=== PATIENT | female | born 1970 | race Caucasian/White ===

== ENCOUNTER 2017-06-02 16:49 | Observation (INO) | payer OTHER ==
[2017-06-02 17:14] LABS: % IMMATURE GRANULYOCYTES 0.2 % (0.0-1.1); ABSOLUTE IMMATURE GRANULOCYTES 0.01 10^3/uL (0.00-0.10); ADD DIFF? NO; ADD MORPH? NO; ADD SCAN? NO; ATYPICAL LYMPHOCYTE FLAG 20 (0-99); FRAGMENT RBC FLAG 0 (0-99); HEMATOCRIT 39.4 % (38.0-47.0); HEMOGLOBIN 13.4 g/dL (12.6-16.3); LEFT SHIFT FLG 0 (0-99); LIPEMIA HEMOLYSIS FLAG 90 (0-99); MEAN CELL HEMOGLOBIN 29.5 pg (27.9-34.1); MEAN CELL VOLUME 86.6 fL (81.5-99.8); MEAN PLATELET VOLUME 11.1 fL (8.7-11.7); PLATELET CLUMPS FLAG 0 (0-99); PLATELET COUNT 167 10^3/uL (150-400); RED BLOOD CELL COUNT 4.55 10^6/uL (4.18-5.33); RED CELL DISTRIBUTION WIDTH 12.7 % (11.5-15.2)
[2017-06-02 17:22] LABS: COLOR YELLOW; LEUKOCYTE ESTERASE,URINE NEGATIVE (NEGATIVE); NITRITE,URINE NEGATIVE (NEGATIVE); PH,URINE 6.5 (5.0-7.5)
[2017-06-02 17:32] LABS: ANION GAP 11 mEq/L (8-16); CALCIUM 9.1 mg/dL (8.5-10.4); CARBON DIOXIDE 27 mEq/l (22-31); CHLORIDE 103 mEq/L (97-110); CREATININE 0.7 mg/dL (0.6-1.0); GLOMERULAR FILTRATION RATE > 60; GLUCOSE 83 mg/dL (70-100); SODIUM 141 mEq/L (134-144)
[2017-06-02 17:33] LABS: ALANINE AMINOTRANSFERASE 26 IU/L (9-52); ALBUMIN 4.3 g/dL (3.5-5.0); ALKALINE PHOSPHATASE 38 IU/L (38-126); ASPARTATE AMINOTRANSFERASE 20 IU/L (14-46); BILIRUBIN,TOTAL 0.5 mg/dL (0.1-1.4); TOTAL PROTEIN 7.4 g/dL (6.3-8.2)
[2017-06-02] MEDS ORDERED: KETOROLAC 30 MG/1 ML SDV IVP ONE (17:35)
[2017-06-02] MEDS ORDERED: ERTAPENEM 1 GM in NS 100 ML IV ONE (20:57)
--- NOTE | 2017-06-02 21:01 | EDPHY ---
H & P Time Seen by Provider: 06/02/17 17:12 HPI/ROS: CHIEF COMPLAINT: Right lower quadrant pain HISTORY OF PRESENT ILLNESS: 46-year-old female presenting to the emergency department primary complaint of nausea for the last day and a half and developed some right lower quadrant achy discomfort this morning. Patient can identify no clear relieving factors, her pain is worse when the moving her leg a certain way and when walking. She denies any vomiting. She denies a fever, cough, or cold symptoms. No urinary complaints. No diarrhea. 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 No fever, chills, chest pain, shortness of breath, palpitations, vomiting, diarrhea, urinary complaints, headache, lightheadedness. REVIEW OF SYSTEMS: Aside from elements discussed in the HPI, a comprehensive 10-point review of systems was reviewed and is negative. PAST MEDICAL HISTORY: Patient denies. SOCIAL HISTORY: Here with her family. She is a teacher. VITAL SIGNS Reviewed by me. GENERAL: Well-developed, well-nourished, resting comfortably in no respiratory distress. HEENT: Atraumatic. Eyes: No icterus, no injection. Mouth: moist mucous membranes. No erythema or lesions. Neck: supple with no adenopathy. LUNGS: Clear to auscultation bilaterally, no wheezes, rhonchi or rales. CARDIAC: Regular rate and rhythm, no rubs, murmurs or gallops. ABDOMEN: Soft, mild tenderness in the low right lower quadrant. Patient can identify an area 1-2 cm above the inguinal fold where the tenderness is maximum. She also has some achy discomfort at McBurney's point. No guarding or rebound. Palpation of the left side of the abdomen does cause pain in the right lower quadrant. BACK: No CVA tenderness. EXTREMITIES: No trauma. No edema. Range of motion is normal throughout. NEURO: Alert and oriented, grossly nonfocal. SKIN: Warm and dry, no rash. PSYCHIATRIC: Normal mentation, no agitation. Smoking Status: Never smoked Constitutional: Initial Vital Signs Temperature (C) 36.6 C 06/02/17 16:52 Heart Rate 92 06/02/17 16:52 Respiratory Rate 18 06/02/17 16:52 Blood Pressure 147/66 H 06/02/17 16:52 O2 Sat (%) 97 06/02/17 16:52 O2 Delivery Mode Room Air Allergies/Adverse Reactions: No Known Allergies Allergy (Verified 01/09/15 20:45) Home Medications: Medication Instructions Recorded NO HOME MEDS 12/08/10 Medical Decision Making - Diagnostics Imaging Results: Imaging Impressions Abdomen Ultrasound 06/02/17 17:34 Impression: 1. Small fibroid posterior uterine body. 2. Hemorrhagic or septated follicular cyst left adnexa. 3. Findings suspicious for appendicitis with thickened appendix measuring 11-12 mm. Findings discussed with Cleo Theodore MD at 20:48 hour, 06/02/2017. Pelvic/Renal Ultrasound 06/02/17 17:34 Impression: 1. Small fibroid posterior uterine body. 2. Hemorrhagic or septated follicular cyst left adnexa. 3. Findings suspicious for appendicitis with thickened appendix measuring 11-12 mm. Findings discussed with Cleo Theodore MD at 20:48 hour, 06/02/2017. ED Course/Re-evaluation: 46-year-old female with nausea for day and a half and right lower quadrant discomfort. Patient looks well on exam. She does have tenderness palpation in the right lower quadrant, but quite inferior. She notes the discomfort is worse when she walks and that palpation of the left lower quadrant does cause discomfort in the right lower quadrant. Patient's laboratory evaluation is unremarkable. She has a normal white count, not , and normal chemistries. Ultrasound examination was ordered to evaluate for appendicitis. Ultrasound demonstrates a thickened 11-12 mm appendix which is noncompressible with no surrounding fluid and no abscess. I discussed ultrasound results with the patient. She understands the importance of surgical consultation and admission to the hospital. 1 g of Invanz was administered. Patient received a L of normal saline. She was instructed to remain NPO. Course was discussed with Dr. Vernon Donovan. Patient will be admitted [facility]; further evaluation and treatment as directed by Dr. Donovan. Differential Diagnosis: The differential diagnosis for the patient's abdominal pain was considered including but not limited to ovarian cyst, pelvic inflammatory disease, ovarian torsion, urinary tract infection, related complications, and appendicitis. Consult/Admit Bed Type: Dr. Vernon Donovan, Medical-Surgical - Data Points Laboratory Results: Laboratory Results 06/02/17 17:06 06/02/17 17:06 06/02/17 06/02/17 06/02/17 17:10 17:06 17:06 WBC RBC Hgb Hct MCV MCH MCHC RDW Plt Count MPV Neut % (Auto) Lymph % (Auto) [place] % (Auto) Eos % (Auto) Baso % (Auto) Nucleat RBC Rel Count Absolute Neuts (auto) Absolute Lymphs (auto) Absolute Monos (auto) Absolute Eos (auto) Absolute Basos (auto) Absolute Nucleated RBC Immature Gran % Immature Gran # Sodium 141 mEq/L mEq/L (134-144) Potassium 4.0 mEq/L mEq/L (3.5-5.2) Chloride 103 mEq/L mEq/L (97-110) Carbon Dioxide 27 mEq/l mEq/l (22-31) Anion Gap 11 mEq/L mEq/L (8-16) BUN 18 mg/dL mg/dL (7-23) Creatinine 0.7 mg/dL mg/dL (0.6-1.0) Estimated GFR > 60 Glucose 83 mg/dL mg/dL (70-100) Calcium 9.1 mg/dL mg/dL (8.5-10.4) Total Bilirubin 0.5 mg/dL mg/dL (0.1-1.4) AST 20 IU/L IU/L (14-46) ALT 26 IU/L IU/L (9-52) Alkaline Phosphatase 38 IU/L IU/L (38-126) Total Protein 7.4 g/dL g/dL (6.3-8.2) Albumin 4.3 g/dL g/dL (3.5-5.0) Beta HCG, Qual NEGATIVE Urine Color YELLOW Urine Appearance CLEAR Urine pH 6.5 (5.0-7.5) Ur Specific [place] 1.010 (1.002-1.030) Urine Protein NEGATIVE (NEGATIVE) Urine Ketones NEGATIVE (NEGATIVE) Urine Blood NEGATIVE (NEGATIVE) Urine Nitrate NEGATIVE (NEGATIVE) Urine Bilirubin NEGATIVE (NEGATIVE) Urine Urobilinogen 0.2 EU EU (0.2-1.0) Ur Leukocyte Esterase NEGATIVE (NEGATIVE) Urine Glucose NEGATIVE (NEGATIVE) 06/02/17 17:06 WBC 5.47 10^3/uL 10^3/uL (3.80-9.50) RBC 4.55 10^6/uL 10^6/uL (4.18-5.33) Hgb 13.4 g/dL g/dL (12.6-16.3) Hct 39.4 % % (38.0-47.0) MCV 86.6 fL fL (81.5-99.8) MCH 29.5 pg pg (27.9-34.1) MCHC 34.0 g/dL g/dL (32.4-36.7) RDW 12.7 % % (11.5-15.2) Plt Count 167 10^3/uL 10^3/uL (150-400) MPV 11.1 fL fL (8.7-11.7) Neut % (Auto) 64.1 % % (39.3-74.2) Lymph % (Auto) 26.5 % % (15.0-45.0) [place] % (Auto) 6.9 % % (4.5-13.0) Eos % (Auto) 1.6 % % (0.6-7.6) Baso % (Auto) 0.7 % % (0.3-1.7) Nucleat RBC Rel Count 0.0 % % (0.0-0.2) Absolute Neuts (auto) 3.50 10^3/uL 10^3/uL (1.70-6.50) Absolute Lymphs (auto) 1.45 10^3/uL 10^3/uL (1.00-3.00) Absolute Monos (auto) 0.38 10^3/uL 10^3/uL (0.30-0.80) Absolute Eos (auto) 0.09 10^3/uL 10^3/uL (0.03-0.40) Absolute Basos (auto) 0.04 10^3/uL 10^3/uL (0.02-0.10) Absolute Nucleated RBC 0.00 10^3/uL 10^3/uL (0-0.01) Immature Gran % 0.2 % % (0.0-1.1) Immature Gran # 0.01 10^3/uL 10^3/uL (0.00-0.10) Sodium Potassium Chloride Carbon Dioxide Anion Gap BUN Creatinine Estimated GFR Glucose Calcium Total Bilirubin AST ALT Alkaline Phosphatase Total Protein Albumin Beta HCG, Qual Urine Color Urine Appearance Urine pH Ur Specific [place] Urine Protein Urine Ketones Urine Blood Urine Nitrate Urine Bilirubin Urine Urobilinogen Ur Leukocyte Esterase Urine Glucose Medications Given: Discontinued Medications Ketorolac Tromethamine (Toradol) 15 mg IVP EDNOW ONE Stop: 06/02/17 17:36 Last Admin: 06/02/17 17:53 Dose: 15 mg Departure - Departure Disposition: [facility] Inpatient Acute Clinical Impression: Abdominal pain Qualifiers: Abdominal location: right lower quadrant Qualified Code(s): R10.31 - Right lower quadrant pain Acute appendicitis Qualifiers: Acute appendicitis type: unspecified acute appendicitis type Qualified Code(s) : K35.80 - Unspecified acute appendicitis Condition: Fair Additional Instructions: Proceed directly to [facility]. You will be admitted to a medical-surgical room and will be evaluated by Dr. Vernon Donovan.
[2017-06-02] MEDS ORDERED: NS 1,000 ML IV ONE (21:03)
[2017-06-02] MEDS ORDERED: ONDANSETRON 4 MG/2 ML VIAL IVP ONE (22:03)
[2017-06-02] MEDS ORDERED: ONDANSETRON 4 MG/2 ML VIAL ONE (22:05)
--- NOTE | 2017-06-02 23:58 | PDGENHP ---
History and Physical - Chief Complaint abdominal pain - History of Present Illness 46 y/o female with 2 day history of mild intermitant nausea and starting this morning abdominal pain that localized to the RLQ. She had 2 BM's this morning, the second a loose stool. She has not had emesis or fever. Her LMP was 2 weeks prior. She was seen at [facility] and transferred to [facility] for surgical consultation. A pelvic and abdominal ultrasound were performed which showed a small posterior uterine fibroid with a uterine stripe measuring 14mm, a left ovarian cyst and multiple small right folicles. There was a 11-12 non-compressible structure in the RLQ felt to be consistant with a dilated appendix. Her wbc was 5.4 History Information - Allergies/Home Medication List Allergies/Adverse Reactions: No Known Allergies Allergy (Verified 01/09/15 20:45) Home Medications: NO HOME MEDS 12/08/10 [Last Taken Unknown] I have personally reviewed and updated: family history, medical history, social history (here with her /2 children at home 9 and 13, no current PCP), surgical history - Surgical History Reports: no pertinent surgical hx Additional surgical history: vaginal deliveries Dr. Hubbard/subsequent breast augmentation - Social History Smoking Status: Never smoked Alcohol Use: Occasionally Drug Use: None Review of Systems Constitutional: Reports: no symptoms Respiratory: Reports: no symptoms Gastrointestinal: Reports: abdominal pain, diarrhea (one episode), nausea Genitourinary: Reports: no symptoms Physical Exam Temp Pulse Resp BP Pulse Ox 36.5 C 77 16 102/75 96 06/02/17 23:10 06/02/17 23:10 06/02/17 23:10 06/02/17 23:10 06/02/17 23:10 Constitutional: no apparent distress Eyes: anicteric sclera Cardiovascular: regular rate and rhythym Respiratory: no respiratory distress Gastrointestinal: normoactive bowel sounds, soft, non-tender abdomen, no palpable masses, other (shotty inguinal adenopathy without hernia/patient able to jump up and down without pain) Skin: warm Psychiatric: interacting appropriately, not anxious Lymph, Heme, Immunologic: no cervical LAD Lab Data & Imaging Review 06/02/17 17:06 06/02/17 17:06 WBC 5.47 10^3/uL (3.80-9.50) 06/02/17 17:06 RBC 4.55 10^6/uL (4.18-5.33) 06/02/17 17:06 Hgb 13.4 g/dL (12.6-16.3) 06/02/17 17:06 Hct 39.4 % (38.0-47.0) 06/02/17 17:06 MCV 86.6 fL (81.5-99.8) 06/02/17 17:06 MCH 29.5 pg (27.9-34.1) 06/02/17 17:06 MCHC 34.0 g/dL (32.4-36.7) 06/02/17 17:06 RDW 12.7 % (11.5-15.2) 06/02/17 17:06 Plt Count 167 10^3/uL (150-400) 06/02/17 17:06 MPV 11.1 fL (8.7-11.7) 06/02/17 17:06 Neut % (Auto) 64.1 % (39.3-74.2) 06/02/17 17:06 Lymph % (Auto) 26.5 % (15.0-45.0) 06/02/17 17:06 [place] % (Auto) 6.9 % (4.5-13.0) 06/02/17 17:06 Eos % (Auto) 1.6 % (0.6-7.6) 06/02/17 17:06 Baso % (Auto) 0.7 % (0.3-1.7) 06/02/17 17:06 Nucleat RBC Rel Count 0.0 % (0.0-0.2) 06/02/17 17:06 Absolute Neuts (auto) 3.50 10^3/uL (1.70-6.50) 06/02/17 17:06 Absolute Lymphs (auto) 1.45 10^3/uL (1.00-3.00) 06/02/17 17:06 Absolute Monos (auto) 0.38 10^3/uL (0.30-0.80) 06/02/17 17:06 Absolute Eos (auto) 0.09 10^3/uL (0.03-0.40) 06/02/17 17:06 Absolute Basos (auto) 0.04 10^3/uL (0.02-0.10) 06/02/17 17:06 Absolute Nucleated RBC 0.00 10^3/uL (0-0.01) 06/02/17 17:06 Immature Gran % 0.2 % (0.0-1.1) 06/02/17 17:06 Immature Gran # 0.01 10^3/uL (0.00-0.10) 06/02/17 17:06 Sodium 141 mEq/L (134-144) 06/02/17 17:06 Potassium 4.0 mEq/L (3.5-5.2) 06/02/17 17:06 Chloride 103 mEq/L (97-110) 06/02/17 17:06 Carbon Dioxide 27 mEq/l (22-31) 06/02/17 17:06 Anion Gap 11 mEq/L (8-16) 06/02/17 17:06 BUN 18 mg/dL (7-23) 06/02/17 17:06 Creatinine 0.7 mg/dL (0.6-1.0) 06/02/17 17:06 Estimated GFR > 60 06/02/17 17:06 Glucose 83 mg/dL (70-100) 06/02/17 17:06 Calcium 9.1 mg/dL (8.5-10.4) 06/02/17 17:06 Total Bilirubin 0.5 mg/dL (0.1-1.4) 06/02/17 17:06 AST 20 IU/L (14-46) 06/02/17 17:06 ALT 26 IU/L (9-52) 06/02/17 17:06 Alkaline Phosphatase 38 IU/L (38-126) 06/02/17 17:06 Total Protein 7.4 g/dL (6.3-8.2) 06/02/17 17:06 Albumin 4.3 g/dL (3.5-5.0) 06/02/17 17:06 Beta HCG, Qual NEGATIVE 06/02/17 17:06 Urine Color YELLOW 06/02/17 17:10 Urine Appearance CLEAR 06/02/17 17:10 Urine pH 6.5 (5.0-7.5) 06/02/17 17:10 Ur Specific [place] 1.010 (1.002-1.030) 06/02/17 17:10 Urine Protein NEGATIVE (NEGATIVE) 06/02/17 17:10 Urine Ketones NEGATIVE (NEGATIVE) 06/02/17 17:10 Urine Blood NEGATIVE (NEGATIVE) 06/02/17 17:10 Urine Nitrate NEGATIVE (NEGATIVE) 06/02/17 17:10 Urine Bilirubin NEGATIVE (NEGATIVE) 06/02/17 17:10 Urine Urobilinogen 0.2 EU (0.2-1.0) 06/02/17 17:10 Ur Leukocyte Esterase NEGATIVE (NEGATIVE) 06/02/17 17:10 Urine Glucose NEGATIVE (NEGATIVE) 06/02/17 17:10 Visualized and Interpreted imaging results: Yes Interpretation: reviewed ultrasound mm structure overlying ext iliac vessels ? lymph node/no free fluid Assessment & Plan Assessment: Abdominal pain (Acute)- clinically not consistent with appendicitis Plan: I discussed the options with Crystal and her . I recommended observation with repeat cbc and trial of liquids with repeat exam in AM. We also discussd CT for confirmation and/or proceeding with surgery. She is comfortable with observation.
[2017-06-03] MEDS ORDERED: NS 1,000 ML IV SCH (00:15)
[2017-06-03 01:14] LABS: % IMMATURE GRANULYOCYTES 0.2 % (0.0-1.1); ABSOLUTE IMMATURE GRANULOCYTES 0.01 10^3/uL (0.00-0.10); ADD DIFF? NO; ADD MORPH? NO; ADD SCAN? NO; ATYPICAL LYMPHOCYTE FLAG 20 (0-99); FRAGMENT RBC FLAG 0 (0-99); HEMATOCRIT 33.9 % (38.0-47.0); HEMOGLOBIN 11.5 g/dL (12.6-16.3); LEFT SHIFT FLG 0 (0-99); LIPEMIA HEMOLYSIS FLAG 90 (0-99); MEAN CELL HEMOGLOBIN 29.6 pg (27.9-34.1); MEAN CELL HEMOGLOBIN CONCENTR. 33.9 g/dL (32.4-36.7); MEAN CELL VOLUME 87.4 fL (81.5-99.8); MEAN PLATELET VOLUME 11.8 fL (8.7-11.7); PLATELET CLUMPS FLAG 0 (0-99); PLATELET COUNT 130 10^3/uL (150-400); RED BLOOD CELL COUNT 3.88 10^6/uL (4.18-5.33); RED CELL DISTRIBUTION WIDTH 12.8 % (11.5-15.2)
[2017-06-03 01:29] LABS: SEDIMENTATION RATE 7 MM/HR (0-20)
[2017-06-03 06:16] VITALS: BP 89/58; PULSE 72; RESP 14; TEMP 98.2; O2SAT 95
--- NOTE | 2017-06-03 07:07 | SOAPPROG ---
Downtime Inpatient MD Late Entry SOAP Note: Crystal denies pain or nausea. She remains afebrile and has not requested analgesics. her repeat wbc was 4.4 and her ESR 7 CA-125 <5.5. Her exam is unchanged with mild low RLQ/inguinal area tenderness without guarding. I recommended advancing her diet and discharging home and she agrees. I did not recommend a CT unless symptoms recur. I also recommended [employer] FU within the next 6 weeks for her left ovarian cyst and uterine fibroid/prominence of the uterine stripe. Fidencio Donovan MD, FACS
== END 2017-06-03 10:11 | disposition home or self-care (01) ==
LOC: CED 16:49 → CEDHOLD 21:01 → F3E 22:56
PROVIDERS: ADMIT Surgery; ATTEND Surgery
DX: R10.31 Right lower quadrant pain (principal); D25.9 Leiomyoma of uterus, unspecified; N83.02 Follicular cyst of left ovary
CPT/HCPCS: 76705; 76856; G0378; 80053-PO; 81003-PO; 84703-PO; 85025-PO; 86304-90; J1335; J1885; J2405